=== PATIENT | female | born 1980 | race African-American/Black ===

== ENCOUNTER 2016-10-15 06:19 | Emergency (ER) | payer OTHER ==
[~2016-10-15] VITALS: Ht 170.2 cm; Wt 77.1 kg
[2016-10-15 07:35] LABS: BASO % 0.6 % (0.0-1.0); EOS # 0.1 K/mm3 (0.0-0.50); EOS % 1.6 % (0.0-3.0); LARGE UNSTAINED CELL # 0.1 K/mm3 (0.0-0.4); LARGE UNSTAINED CELL % 2.7 % (0.0-4.0); LYMPH # 1.3 K/mm3 (1.5-4.5); LYMPH % 23.1 % (24.0-44.0); MEAN CORPUSCULAR HEMOGLOBIN 28.8 pg (27.0-33.0); MEAN CORPUSCULAR VOLUME 90.1 fl (80.0-96.0); MONO # 0.4 K/mm3 (0.0-0.8); MONO % 7.4 % (0.0-5.0); NEUTROPHILS # 3.3 K/mm3 (1.8-7.7); NEUTROPHILS % 64.5 % (36.0-66.0); PLATELET COUNT, AUTOMATED 156 k/mm3 (150-450); RED CELL DISTRIBUTION WIDTH 14.1 % (11.5-14.5); WHITE BLOOD COUNT 5.1 K/mm3 (4.0-10.0)
[2016-10-15 07:50] LABS: CONTROL LINE HCG INT CTR LINE PRESENT
[2016-10-15 07:59] LABS: ALBUMIN 3.4 GM/DL (3.2-5.2); ALBUMIN/GLOBULIN RATIO 0.76 (1.00-1.93); ALKALINE PHOSPHATASE 70 U/L (45-117); ALT/SGPT 16 U/L (12-78); ANION GAP 7 MEQ/L (8-16); AST/SGOT 15 U/L (15-37); BILIRUBIN,DIRECT 0.2 MG/DL (0.0-0.2); BILIRUBIN,TOTAL 0.9 MG/DL (0.2-1.0); BLOOD UREA NITROGEN 12 MG/DL (7-18); CALCIUM LEVEL 8.5 MG/DL (8.5-10.1); CARBON DIOXIDE LEVEL 26 MEQ/L (21-32); CHLORIDE LEVEL 105 MEQ/L (98-107); CREATININE FOR GFR 0.94 MG/DL (0.55-1.02); GLOMERULAR FILTRATION RATE > 60.0 (>60); GLUCOSE, FASTING 94 MG/DL (70-105); POTASSIUM SERUM 3.8 MEQ/L (3.5-5.1); SODIUM LEVEL 138 MEQ/L (136-145); TOTAL PROTEIN 7.9 GM/DL (6.4-8.2)
[2016-10-15 08:00] VITALS: BP 105/68
--- NOTE | 2016-10-15 09:09 | REP ---
PELVIC ULTRASOUND: Real-time sonographic evaluation of the pelvis is performed utilizing transabdominal and endovaginal technique. The urinary bladder is collapsed. The uterus measures 9.7 x 4.7 x 5.9 cm. Endometrial thickness is 4 mm. There is trace endometrial fluid present. The ovaries are normal in size and echotexture, right ovary measuring 3.6 x 2.0 x 2.5 cm and the left ovary 2.7 x 1.8 x 2.6 cm. There is no adnexal mass or free fluid. Blood flow is seen in each ovary with duplex Doppler evaluation, with no torsion. IMPRESSION: Essentially negative pelvic ultrasound. No mass or torsion. Signed by Dharemsh Olmstead MD 10/15/2016 05:23 P
--- NOTE | 2016-10-15 09:44 | REP ---
CT ABDOMEN AND PELVIS WITHOUT IV CONTRAST: CT abdomen and pelvis performed without oral or IV contrast, with sagittal and coronal reconstruction images performed. Visualized lung bases demonstrate no infiltrate. Liver, spleen, adrenals, pancreas, and kidneys are grossly unremarkable. There is no evidence of renal, ureteral or bladder calculus and no evidence of hydroureteronephrosis. There is no abdominal aortic aneurysm. No gross adenopathy is seen. No definite free air or free fluid is seen. The appendix is normal. No gross bowel wall thickening is seen. No gross pelvic abnormality is seen. IMPRESSION: Negative noncontrast CT abdomen and pelvis. No evidence of appendicitis. No evidence of renal, ureteral or bladder calculus and no hydroureteronephrosis. Signed by Dharmesh Olmstead MD 10/15/2016 05:23 P
== END 2016-10-15 10:54 | disposition home or self-care (01) ==
LOC: M ED 07:47
DX: R10.9 Unspecified abdominal pain (principal); R11.2 Nausea with vomiting, unspecified; I10 Essential (primary) hypertension; N92.6 Irregular menstruation, unspecified